=== PATIENT | male | born 1965 | race Caucasian/White ===

== ENCOUNTER 2017-07-23 16:49 | Emergency (ER) | payer BC, OTHER ==
[2017-07-23 18:38] LABS: CHLORIDE,CL 106 mmol/L (98-107); SODIUM,NA 141 mmol/L (136-148)
[2017-07-23] MEDS ORDERED: Sodium Chloride 0.9% 2.5 ML Syringe FLUSH PRN (19:36)
[2017-07-23] MEDS ORDERED: Sodium Chloride 0.9% 10 ML Syringe FLUSH PRN (19:36)
--- NOTE | 2017-07-23 19:36 | EDM.PDOC ---
ED HPI GENERAL MEDICAL PROBLEM - General Chief Complaint: Lower Extremity Injury/Pain Stated Complaint: PAIN RT FOOT Time Seen by Provider: 07/23/17 19:33 Source of Information: Reports: Patient History Limitations: Reports: No Limitations - History of Present Illness INITIAL COMMENTS - FREE TEXT/NARRATIVE: HISTORY AND PHYSICAL: []51-year-old male presenting with redness and swelling to his right foot History of Present Illness: []4-5 days of this is started and now has hot he cannot get his boots on He put on a old pair of boots and this seemed to be rubbing on his foot that started Review of Systems: As per history of present illness and below otherwise all systems reviewed and negative. Past medical history: As per history of present illness and as reviewed below otherwise noncontributory. Surgical history: As per history of present illness and as reviewed below otherwise noncontributory. Social history: No reported history of drug or alcohol abuse. Family history: As per history of present illness and as reviewed below otherwise noncontributory. Physical exam: Alert and oriented male answering questions appropriately in full sentences without any shortness of breath HEENT: Atraumatic, normocehpalic, pupils reactive, negative for conjunctival pallor or scleral icterus, mucous membranes moist, throat clear, neck supple, nontender, trachea midline. Lungs: Clear to auscultation, breath sounds equal bilaterally, chest non tender. Heart: S1S2, regular, negative for clicks, rubs, or JVD. Abdomen: Soft, nondistended, nontender. Negative for masses or hepatossplenmegaly. Negative for costovertebral tenderness. Pelvis: Stable nontender. Genitourinary: Deferred. Rectal: Deferred Extremities: Atraumatic, negative for cords or calf pain. Foot with erythema heat radiating from this. Edema present Neurovascular unremarkable. Neuro: Awake, alert, oriented. Cranial nerves II through XII unremarkable. Cerebellum unremarkable. Motor and sensory unremarkable throughout. Exam nonfocal. Skin marker was utilized and markings of the edge of the erythema Discussed patient's hypertension with him he does have a physician in [place] who has discussed with him the elevated blood pressure. He has upcoming appointment on July to be reevaluated and started on medication. Diagnostics: []X-ray right foot /negative for any fracture or dislocation Therapeutics: []IV Rocephin Impression: []Cellulitis Plan: [] home on antibiotic therapy Definitive disposition and diagnosis as appropriate pending reevaluation and review of above. Onset: Gradual Duration: Day(s): (3-4) Location: Reports: Lower Extremity, Right Quality: Reports: Ache, Burning Severity: Moderate Improves with: Reports: None Worsens with: Reports: None Associated Symptoms: Reports: No Other Symptoms right toe Pain Score (Numeric/FACES): 10 - Related Data Allergies Allergy/AdvReac Type Severity Reaction Status Date / Time clarithromycin [From Biaxin] Allergy Chest Pain Verified 07/23/17 17:57 Home Meds: Home Meds Cephalexin [IJD: Cephalexin] 500 mg PO .EVERY 8 HOURS #30 cap 07/23/17 [Rx] Past Medical History - Infectious Disease History Infectious Disease History: Reports: Chicken Pox - Past Surgical History HEENT Surgical History: Reports: Tonsillectomy Social & Family History - Family History Family Medical History: Noncontributory - Tobacco Use Smoking Status *Q: Never Smoker - Caffeine Use Caffeine Use: Reports: Soda - Recreational Drug Use Recreational Drug Use: No Review of Systems - Review of Systems Review Of Systems: ROS reveals no pertinent complaints other than HPI. ED EXAM, GENERAL - Physical Exam Exam: See Below (see dictation) Course - Vital Signs Last Recorded V/S: Last Vital Signs Temp 36.8 C 07/23/17 19:33 Pulse 98 07/23/17 19:33 Resp 16 07/23/17 19:33 BP 137/101 H 07/23/17 19:33 Pulse Ox 96 07/23/17 19:33 - Orders/Labs/Meds Orders: Active Orders 24 hr Category Date Time Status Foot Comp Min 3V Rt [CR] Stat Exams 07/23/17 18:03 Taken CULTURE BLOOD [BC] Stat Lab 07/23/17 19:36 Ordered CULTURE BLOOD [BC] Stat Lab 07/23/17 19:36 Ordered Sodium Chloride 0.9% [Saline Flush] Med 07/23/17 19:36 Active 10 ml FLUSH ASDIRECTED PRN Sodium Chloride 0.9% [Saline Flush] Med 07/23/17 19:36 Active 2.5 ml FLUSH ASDIRECTED PRN Blood Culture x2 Reflex Set [OM.PC] Stat Oth 07/23/17 19:36 Ordered Saline Lock Insert [OM.PC] Stat [facility] 07/23/17 19:36 Ordered Medication Orders Sodium Chloride (Saline Flush) 10 ml FLUSH ASDIRECTED PRN PRN Reason: Keep Vein Open Sodium Chloride (Saline Flush) 2.5 ml FLUSH ASDIRECTED PRN PRN Reason: Keep Vein Open Labs: Laboratory Tests 07/23/17 07/23/17 Range/Units 18:12 18:12 WBC 9.21 (4.0-11.0) K/uL RBC 5.13 (4.50-5.90) M/uL Hgb 16.5 (13.0-17.0) g/dL Hct 47.1 (38.0-50.0) % MCV 91.8 (80.0-98.0) fL MCH 32.2 H (27.0-32.0) pg MCHC 35.0 (31.0-37.0) g/dL RDW Std Deviation 44.1 (28.0-62.0) fl RDW Coeff of Kailee 13 (11.0-15.0) % Plt Count 179 (150-400) K/uL MPV 9.70 (7.40-12.00) fL Neut % (Auto) 65.3 (48.0-80.0) % Lymph % (Auto) 24.1 (16.0-40.0) % [place] % (Auto) 9.2 (0.0-15.0) % Eos % (Auto) 1.2 (0.0-7.0) % Baso % (Auto) 0.2 (0.0-1.5) % Neut # (Auto) 6.0 H (1.4-5.7) K/uL Lymph # (Auto) 2.2 (0.6-2.4) K/uL [place] # (Auto) 0.9 H (0.0-0.8) K/uL Eos # (Auto) 0.1 (0.0-0.7) K/uL Baso # (Auto) 0.0 (0.0-0.1) K/uL Nucleated RBC % 0.0 /100WBC Nucleated RBCs # 0 K/uL Sodium 141 (136-148) mmol/L Potassium 3.9 (3.5-5.1) mmol/L Chloride 106 (98-107) mmol/L Carbon Dioxide 25.3 (21.0-32.0) mmol/L BUN 17 (7.0-18.0) mg/dL Creatinine 1.1 (0.8-1.3) mg/dL Est Cr Clr Drug Dosing 94.45 mL/min Estimated GFR (MDRD) > 60.0 ml/min Glucose 105 (74-106) mg/dL Calcium 9.0 (8.5-10.1) mg/dL Total Bilirubin 0.9 (0.2-1.0) mg/dL AST 21 (15-37) IU/L ALT 20 (14-63) IU/L Alkaline Phosphatase 66 (46-116) U/L Total Protein 7.1 (6.4-8.2) g/dL Albumin 4.1 (3.4-5.0) g/dL Globulin 3.0 (2.0-3.5) g/dL Albumin/Globulin Ratio 1.4 (1.3-2.8) Meds: Medications Generic Name Dose Route Start Last Admin Trade Name Freq PRN Reason Stop Dose Admin Sodium Chloride 10 ml 07/23/17 19:36 Saline Flush FLUSH ASDIRECTED PRN Keep Vein Open Sodium Chloride 2.5 ml 07/23/17 19:36 Saline Flush FLUSH ASDIRECTED PRN Keep Vein Open Departure - Departure Time of Disposition: 19:46 Disposition: Home, Self-Care 01 Condition: Good Clinical Impression: Cellulitis Qualifiers: Site of cellulitis: extremity Site of cellulitis of extremity: lower extremity Laterality: right Qualified Code(s): L03.115 - Cellulitis of right lower limb - Discharge Information Prescriptions: Cephalexin [IJD: Cephalexin] 500 mg PO .EVERY 8 HOURS #30 cap Referrals: PCP,None [Primary Care Provider] - Forms: ED Department Discharge Additional Instructions: The following information is given to patients seen in the emergency department who are being discharged to home. This information is to outline your options for follow-up care. We provide all patients seen in our emergency department with a follow-up referral. The need for follow-up, as well as the timing and circumstances, are variable depending upon the specifics of your emergency department visit. If you don't have a primary care physician on staff, we will provide you with a referral. We always advise you to contact your personal physician following an emergency department visit to inform them of the circumstance of the visit and for follow-up with them and/or the need for any referrals to a consulting specialist. The emergency department will also refer you to a specialist when appropriate. This referral assures that you have the opportunity for followup care with a specialist. All of these measure are taken in an effort to provide you with optimal care, which includes your followup. Under all circumstances we always encourage you to contact your private physician who remains a resource for coordinating your care. When calling for followup care, please make the office aware that this follow-up is from your recent emergency room visit. If for any reason you are refused follow-up, please contact the [facility] emergency department at and asked to speak to the emergency department charge nurse. You have a cellulitis to your right foot You had Rocephin antibiotic IV in the emergency department Prescription for cephalexin has been sent to [facility] Follow-up with your primary care provider next week Worsening of symptoms return for reevaluation in the emergency department - My Orders Last 24 Hours: My Active Orders 07/23/17 18:03 Foot Comp Min 3V Rt [CR] Stat 07/23/17 19:36 CULTURE BLOOD [BC] Stat CULTURE BLOOD [BC] Stat Sodium Chloride 0.9% [Saline Flush] 10 ml FLUSH ASDIRECTED PRN Sodium Chloride 0.9% [Saline Flush] 2.5 ml FLUSH ASDIRECTED PRN Blood Culture x2 Reflex Set [OM.PC] Stat Saline Lock Insert [OM.PC] Stat - Assessment/Plan Last 24 Hours: My Active Orders 07/23/17 18:03 Foot Comp Min 3V Rt [CR] Stat 07/23/17 19:36 CULTURE BLOOD [BC] Stat CULTURE BLOOD [BC] Stat Sodium Chloride 0.9% [Saline Flush] 10 ml FLUSH ASDIRECTED PRN Sodium Chloride 0.9% [Saline Flush] 2.5 ml FLUSH ASDIRECTED PRN Blood Culture x2 Reflex Set [OM.PC] Stat Saline Lock Insert [OM.PC] Stat
[2017-07-23] MEDS ORDERED: cefTRIAXone 1 GM in Premix Bag 1 BAG IV ONE (20:08)
--- NOTE | 2017-07-25 14:22 | CR ---
EXAM DATE: 07/23/17 PATIENT'S AGE: 51 Patient: MAXIM BILL Facility: [place], [place] Site . Site : [id number] Study: XRay Extremity Right foot [id number]/28/2018 6:35:17 PM Ordering Physician: Doctor Rankin Final Report: INDICATION: Pain and swelling. TECHNIQUE: Three views right foot. IMPRESSION: No acute fracture or traumatic malalignment. Soft tissues radiographically unremarkable. Small os peroneum incidentally noted. Dictated by Parker Pepe MD @ Jul 23 2017 7:04PM (Electronic Signature) Report Signed by Proxy. STEVE
== END 2017-07-23 21:20 | disposition home or self-care (01) ==
LOC: MW.ED 16:49
DX: L03.115 Cellulitis of right lower limb (principal); Z88.1 Allergy status to other antibiotic agents; Z79.899 Other long term (current) drug therapy
CPT/HCPCS: 36415; 73630; 80053; 85025; 87040; 96365; 99284; J7060; 99283

== ENCOUNTER 2018-06-07 07:01 | Day surgery (SDC) | payer OTHER ==
[~2018-06-07 07:01] MED LIST: Lactated Ringers 1,000 ML IV SCH
[2018-06-07] MEDS ORDERED: Ketorolac 10 MG Tab PO PRN (08:00)
[2018-06-07] MEDS ORDERED: ceFAZolin 2 GM in Premix Bag 1 BAG IV SCH (08:00)
[2018-06-07] MEDS ORDERED: Acetaminophen/HYDROcodone 325-10 MG Tab PO PRN (08:00)
[2018-06-07] MEDS ORDERED: Succinylcholine 200 MG/10 ML MDV ONE (08:22)
[2018-06-07] MEDS ORDERED: fentaNYL 100 MCG/2 ML SDV ONE (08:22)
[2018-06-07] MEDS ORDERED: Midazolam 1 MG/ML 2 ML SDV ONE (08:23)
--- NOTE | 2018-06-07 08:24 | PCM.PREANE ---
Preanesthetic Assessment - Anesthesia/Transfusion/Family Hx Anesthesia History: Prior Anesthesia Without Reaction Family History of Anesthesia Reaction: No Transfusion History: No Prior Transfusion(s) - Review of Systems General: No Symptoms Pulmonary: No Symptoms Cardiovascular: No Symptoms Gastrointestinal: No Symptoms Neurological: No Symptoms Other: Reports: None - Physical Assessment NPO Status Date: 06/06/18 NPO Status Time: 23:00 O2 Sat by Pulse Oximetry: 96 Respiratory Rate: 16 Vital Signs: Last Vital Signs Temp 97.2 F 06/07/18 07:50 Pulse 80 06/07/18 07:50 Resp 16 06/07/18 07:50 BP 122/96 H 06/07/18 07:50 Pulse Ox 96 06/07/18 07:50 Height: 6 ft 2 in Weight: 128.82 kg ASA Class: 2 Mental Status: Alert & Oriented x3 Airway Class: Mallampati = 2 Dentition: Reports: Normal Dentition ROM/Head Extension: Full Lungs: Clear to Auscultation, Normal Respiratory Effort Cardiovascular: Regular Rate, Regular Rhythm - Allergies Allergies/Adverse Reactions: Allergies Allergy/AdvReac Type Severity Reaction Status Date / Time clarithromycin [From Biaxin] Allergy Chest Pain Verified 05/31/18 15:32 - Blood Blood Available: No - Anesthesia Plan Pre-Op Medication Ordered: None - Acknowledgements Anesthesia Type Planned: General Anesthesia Pt an Appropriate Candidate for the Planned Anesthesia: Yes Alternatives and Risks of Anesthesia Discussed w Pt/Guardian: Yes Pt/Guardian Understands and Agrees with Anesthesia Plan: Yes Additional Comments: PMH: gerd, htn, thyroid replacement, prob SADA- sscheduled for sleep study-not on CPAP PLAN: GET, no ISB because hemidiaphragm block, narcotic, plus recent anesthesia with REM rebound all create high risk in the absense of CPAP PreAnesthesia Questionnaire HEENT History: Reports: Other (See Below) Other HEENT History: wears glasses/contacts Cardiovascular History: Reports: Hypertension Respiratory History: Reports: Other (See Below) Other Respiratory History: has a sleep study scheduled in 2 months Gastrointestinal History: Reports: GERD Musculoskeletal History: Reports: Fracture, Gout Other Musculoskeletal History: hx of fx arm, recently had Gout Neurological History: Reports: Other (See Below) Other Neuro History: hx of motion sickness Psychiatric History: Reports: Anxiety Endocrine/Metabolic History: Reports: Obesity/BMI 30+, Other (See Below) Other Endocrine/Metabolic History: has taken Synthroid in the past- has been taken off medication - Infectious Disease History Infectious Disease History: Reports: Chicken Pox - Past Surgical History HEENT Surgical History: Reports: Tonsillectomy - SUBSTANCE USE Smoking Status *Q: Never Smoker Recreational Drug Use History: No - HOME MEDS Home Medications: Home Meds Losartan [Cozaar] 100 mg PO QAM 05/31/18 [History] Meloxicam 7.5 mg PO DAILY PRN 05/31/18 [History] Multivitamin [Daily Multiple Vitamin] 1 tab PO DAILY 05/31/18 [History] Omeprazole 20 mg PO DAILY 05/31/18 [History] - CURRENT (IN HOUSE) MEDS Current Meds: Current Medications Hydrocodone Bitart/Acetaminophen ([place] 325-10 Mg) 1 - 2 tab PO Q4H PRN PRN Reason: Pain Cefazolin Sodium/Dextrose 2 gm (/ Premix) 50 mls @ 100 mls/hr IV ONCALL FLAVIO Lactated Ringer's (Ringers, Lactated) 1,000 mls @ 100 mls/hr IV ASDIRECTED [facility] Last Admin: 06/07/18 08:12 Dose: 100 mls/hr Ketorolac Tromethamine (Toradol) 10 mg PO Q6H PRN PRN Reason: Pain Stop: 06/12/18 08:01 Discontinued Medications Acetaminophen (Ofirmev) Confirm Administered Dose 100 mls @ as directed IV .STK- MED ONE Stop: 06/07/18 07:50
[2018-06-07] MEDS ORDERED: Propofol 200 MG/20 ML SDV ONE ×3 (09:16→09:56)
[2018-06-07] MEDS ORDERED: ceFAZolin 1 GM Vial ONE (09:33)
[2018-06-07] MEDS ORDERED: ePHEDrine 50 MG/ML SDV ONE (09:36)
[2018-06-07] MEDS ORDERED: Ondansetron 4 MG/2 ML SDV ONE (09:56)
[2018-06-07] MEDS ORDERED: Esmolol 100 MG/10 ML SDV ONE (10:03)
[2018-06-07] MEDS ORDERED: Remifentanil 1 MG Vial ONE (10:04)
[2018-06-07] MEDS ORDERED: Phenylephrine/Normal Saline 100 MCG/ML 10 ML Syringe ONE (10:18)
[2018-06-07] MEDS ORDERED: Phenylephrine 1% 10 MG/ML SDV ONE (10:37)
[2018-06-07] MEDS ORDERED: Glycopyrrolate 0.2 MG/ML SDV ONE (10:43)
[2018-06-07] MEDS ORDERED: Neostigmine Methylsulfate 1 MG/ML 5 ML Syringe ONE (10:43)
[2018-06-07] MEDS ORDERED: Ketorolac 30 MG/ML SDV ONE (10:44)
[2018-06-07] MEDS ORDERED: Dexamethasone 4 MG/ML 5 ML MDV ONE (10:46)
[2018-06-07] MEDS ORDERED: Sugammadex Sodium 200 MG/2 ML VIAL ONE (10:59)
--- NOTE | 2018-06-07 11:13 | PCM.OPNOTE ---
- General Post-Op/Procedure Note Date of Surgery/Procedure: 06/07/18 Operative Procedure(s): R shoulder scope with SAD, extensive debridement, RTCR Post-Op Diagnosis: R shoulder impingement, biceps tendonopathy, degenerative ant labral tear, DJD shoulder, RTC tear Anesthesia Technique: General ET Tube Primary Surgeon: Karlene Manning Computer Game Programmer: Kristine Redd in mLs: 10 Condition: Good Free Text/Narrative:: #[id number]
[2018-06-07] MEDS ORDERED: Ondansetron 4 MG/2 ML SDV IVPUSH ONE (11:21)
[2018-06-07] MEDS ORDERED: HYDROmorphone 2 MG/ML SDV IVPUSH PRN (11:21)
[2018-06-07] MEDS ORDERED: HYDROmorphone 2 MG/ML Syringe ONE ×2 (11:27→12:29)
--- NOTE | 2018-06-07 12:10 | OR ---
SURGEON: Karlene Manning MD DATE OF PROCEDURE: 06/07/2018 PREOPERATIVE DIAGNOSES: 1. Right shoulder impingement syndrome. 2. Right shoulder biceps tendinopathy. 3. Right shoulder partial rotator cuff tear. POSTOPERATIVE DIAGNOSES: 1. Right shoulder impingement syndrome. 2. Right shoulder biceps tendinopathy. 3. Right shoulder rotator cuff tear. 4. Degenerative joint disease, right shoulder. 5. Right shoulder degenerative anterior labral tear. PROCEDURES: Right shoulder arthroscopy with: 1. Subacromial decompression with release of coracoacromial ligament and acromioplasty. 2. Extensive debridement of the shoulder including biceps tenotomy and debridement of degenerative anterior labral tear. 3. Arthroscopic rotator cuff repair. PICCOLOIST: Kristine Redd PA-C ANESTHESIA: General. ESTIMATED BLOOD LOSS: 10 mL. TOURNIQUET TIME: 0 minutes. COMPLICATIONS: None. DVT PROPHYLAXIS: PAS boots to bilateral lower extremities. IMPLANTS USED: Biomet 2.9 mm JuggerKnot anchor and 4.5 mm Quattro Link anchor. BRIEF HISTORY: David is a 52-year-old male who has had complaint of progressive right shoulder pain. He has attempted conservative treatment, however, he continues to complain of pain. Due to his lack of response to conservative treatment, I did recommend surgical intervention. The risks and goals of procedure were discussed with the patient and were documented preoperatively. He agreed to proceed. DESCRIPTION OF PROCEDURE: The patient was properly identified and brought to the operating room. He was transferred from the OR cart and placed on the operating table in supine position. General anesthesia was administered. After adequate anesthesia was obtained, the patient was placed into a beach-chair position. His head was secured. Care was taken to pad all bony prominences. The right upper extremity was then prepped in standard fashion using ChloraPrep solution. It was then sterilely draped. A time-out was performed to ensure correct site and procedure. Preoperative antibiotics were given. The surgical site had been marked preoperatively. Bony landmarks were identified with a marking pen. Approximately 30 mL of normal saline was introduced into the glenohumeral joint. A posterior portal was established. Blunt trocar and cannula were introduced into the glenohumeral joint. Camera, inflow, and outflow were assembled. The rotator interval was identified. This did show mild synovitis. An anterior portal was then established. A blunt probe was inserted. The subscapularis showed minor degenerative fraying along the superior border. Its attachment appeared intact. No loose bodies were noted within the subscapular recess. The anterior labrum showed extensive degeneration. This was treated with debridement using both electrocautery and a shaver. The biceps tendon was then visualized. It was attached to the superior labrum. The biceps tendon was then pulled into the glenohumeral joint. Extensive synovitis and some tearing were noted distally. I elected to proceed with a biceps tenotomy. Electrocautery was used to release the biceps tendon at its insertion point onto the labrum. The biceps tendon retracted easily with into the bicipital tendon sheath. The remainder of the labrum appeared intact. The glenohumeral surfaces were then inspected. He did have mild grade 2 to grade 3 chondromalacia diffusely along the glenoid. The humeral head also showed degenerative changes, mainly along the superior margin. I then entered the axillary pouch and no loose bodies were identified. The arm was then brought into an abducted and externally rotated position. The bare area was noted posteriorly. He had good cuff insertion along the posterior aspect of the cuff, however, anteriorly it appeared quite thin. Instruments were then removed from the shoulder. The arm was brought back into a neutral position. Blunt trocar and cannula were introduced into the subacromial space. Again, camera, inflow, and outflow were assembled. A lateral portal was established. A shaver was used to perform a bursectomy. Electrocautery was also used. He had extensive hemorrhagic bursitis. The coracoacromial ligament was then released off the anterior border of the acromion. He did have significant impingement noted from the acromion. A 5.0 mm reji was used to perform an acromioplasty. This provided good decompression of the subacromial space. After the bursa was removed, I was able to visualize the rotator cuff. The posterior cuff appeared robust and intact. There was a nearly full thickness tear at the anterior aspect of the supraspinatus. This was probed and found to be quite thin. I elected to take this down and proceed with a rotator cuff repair. Electrocautery was used to complete the tear. A reji was then used to roughen the bony surface to provide good bleeding bone bed. Two arthroscopic cannulas were then placed into lateral portals for suture management. The 2.9 mm JuggerKnot anchor was then placed just lateral to the articular margin. Sutures were then passed in an [id number] fashion. I did use a cuff grasper and was able to easily reapproximate the cuff tissue to the bony footprint. The knots were then tied in a [id number] fashion. After completing the first knot on the posterior limbs, the FiberWire did break. I was able to complete the ties within the joint capsule. The anterior knot was tied in standard fashion. Overall, there was good repair of the cuff. I elected to proceed with a lateral row to provide additional compression of the cuff to the bony footprint. The Quattro Link anchor was placed without difficulty. The cuff tear was then probed. It appeared to be watertight. Instruments were then removed from the shoulder. The portal sites were closed with 3-0 nylon. Xeroform gauze was placed over the wound and a bulky dressing was applied. He was awakened from his anesthetic and transferred back to the operating room cart. He was brought to recovery room in stable condition. All needle and sponge counts were correct. DAYANA / ERYN /[id number]
[2018-06-07] MEDS ORDERED: HYDROmorphone 2 MG/ML SDV IVPUSH ONE ×2 (12:21→12:32)
[2018-06-07] MEDS ORDERED: oxyCODONE 5 MG Tab PO PRN (12:22)
--- NOTE | 2018-06-07 12:31 | PCM.POSTAN ---
POST ANESTHESIA ASSESSMENT - MENTAL STATUS Mental Status: Alert, Oriented - RESPIRATORY Respiratory Status: Respiratory Rate WNL, Airway Patent, O2 Saturation Stable - CARDIOVASCULAR CV Status: Pulse Rate WNL, Blood Pressure Stable - GASTROINTESTINAL GI Status: No Symptoms - POST OP HYDRATION Hydration Status: Adequate & Stable
== END 2018-06-07 15:30 | disposition home or self-care (01) ==
LOC: MW.SDS 07:01
PROVIDERS: ATTEND Orthopaedic Surgery
DX: M75.111 Incomplete rotator cuff tear or rupture of right shoulder, not specified as traumatic (principal); M75.41 Impingement syndrome of right shoulder; M19.011 Primary osteoarthritis, right shoulder; M65.811 Other synovitis and tenosynovitis, right shoulder; M94.211 Chondromalacia, right shoulder; S46.211A Strain of muscle, fascia and tendon of other parts of biceps, right arm, initial encounter; S43.491A Other sprain of right shoulder joint, initial encounter; I10 Essential (primary) hypertension; E03.9 Hypothyroidism, unspecified; E66.8 Other obesity; K76.0 Fatty (change of) liver, not elsewhere classified; K21.9 Gastro-esophageal reflux disease without esophagitis; X58.XXXA Exposure to other specified factors, initial encounter; Z88.1 Allergy status to other antibiotic agents; Z68.35 Body mass index [BMI] 35.0-35.9, adult; Z79.1 Long term (current) use of non-steroidal anti-inflammatories (NSAID); Z79.899 Other long term (current) drug therapy
CPT/HCPCS: 29826; 29827; A9270; J0131; J0330; J0690; J1100; J1170; J1885; J2001; J2250; J2370; J2405; J2704; J3010; J3490; J7120; C1713